=== PATIENT | female | born 1975 | race Caucasian/White ===

== ENCOUNTER 2023-04-05 08:00 | Outpatient (CLI) | payer BC ==
--- NOTE | 2023-04-06 12:54 | XRAY Report ---
PROCEDURE: Chest 2V INDICATIONS: CHEST PAIN TECHNIQUE: 2 views of the chest were acquired. COMPARISON: None. FINDINGS: Surgical changes and devices: None. Lungs and pleura: No pleural effusions or pneumothorax. Lungs are clear. Mediastinum: Mediastinal contours appear normal. Heart size is normal. Bones and chest wall: No suspicious bony lesions. Overlying soft tissues appear unremarkable. IMPRESSION: No acute cardiopulmonary process. Reviewed by: Anita Garrido MD on 04/06/2023 12:52 PM PST Approved by: Anita Garrido MD on 04/06/2023 12:52 PM PST Station ID: [id number]
== END 2023-04-05 23:59 | disposition home or self-care (01) ==
LOC: DI.S 08:00
PROVIDERS: ATTEND Physician Assistant
DX: R07.9 Chest pain, unspecified (principal); R01.1 Cardiac murmur, unspecified

== ENCOUNTER 2023-04-23 10:03 | Day surgery (SDC) | payer BC ==
[2023-04-23] MEDS: LACTATED RINGERS 1,000 ML IV ONE ×2 (10:30→12:35)
--- NOTE | 2023-04-23 11:18 | ANESTHESIA ---
Pre-Anesthesia VS, & Labs - Diagnosis screening - Procedure colonoscopy Vital Signs: Temp Pulse Resp BP Pulse Ox O2 Flow Rate 36.7 C 100 16 146/71 H 100 04/23/23 10:20 04/23/23 10:20 04/23/23 10:20 04/23/23 10:20 04/23/23 10:20 Height: 5 ft 8 in Weight (kg): 62 kg Body Mass Index: 20.7 BMI Classification: Normal - NPO >8 hours - Is Patient ?: No Comments:: test pending. will check results prior to anesthesia Home Medications and Allergies Home Medications: Ambulatory Orders No Known Home Medications 04/22/23 No Known Home Medications 04/22/23 Allergies/Adverse Reactions: Allergies Allergy/AdvReac Type Severity Reaction Status Date / Time No Known Drug Allergies Allergy Verified 04/22/23 13:13 Anes History & Medical History - Anesthetic History Anesthesia Complications: reports: No previous complications Family history of Anesthesia Complications: Denies Family history of Malignant Hyperthermia: Denies - Medical History Cardiovascular: reports: None, Other Pulmonary: reports: None Gastrointestinal: reports: None Urinary: reports: None Neuro: reports: None Musculoskeletal: reports: None Endocrine/Autoimmune: reports: None Skin: reports: Other Smoking Status: Never smoker Psychosocial: reports: Anxiety History of Cancer?: No Exam General: Alert, Oriented x3, Cooperative Dental: WNL Mouth Openin Fingerbreadth Neck Mobility: Normal Mallampati classification: I Thyromental Distance: 4-6 cm Respiratory: Lungs clear Cardiovascular: Regular rate Plan Anesthesia Type: General, Total IV Consent for Procedure(s) Verified and Reviewed: Yes Code Status: Attempt Resuscitation ASA classification: 2-Mild systemic disease Is this case an emergency?: No
[2023-04-23] MEDS ORDERED: PROPOFOL 500 MG/50 ML 500 MG/50 ML VIAL ONE (11:21)
[2023-04-23] MEDS ORDERED: PROPOFOL 200 MG/20 ML VIAL IVP ONE ×2 (11:25→11:58)
[2023-04-23 11:33] LABS: HCG UR QUAL NEGATIVE
[2023-04-23] MEDS ORDERED: MIDAZOLAM 2 MG/2 ML VIAL ONE (12:00)
[2023-04-23 12:52] VITALS: BP 108/76; O2SAT 100
--- NOTE | 2023-04-23 13:44 | ANESTHESIA POST OP EVALUATION ---
Anesthesia Post Eval - Post Anesthesia Eval Vitals: Last Vital Signs Temp 36.7 C 04/23/23 12:35 Pulse 78 04/23/23 12:45 Resp 18 04/23/23 12:45 BP 108/76 04/23/23 12:45 Pulse Ox 100 04/23/23 12:45 O2 Flow Rate CV Function Including HR & BP: Stable Pain Control: Satisfactory Nausea & Vomiting: Negative Mental Status: Baseline Respiratory Status: Airway Patent Hydration Status: Satisfactory Anesthesia Complications: None
== END 2023-04-23 10:04 | disposition home or self-care (01) ==
LOC: SDS 10:03
PROVIDERS: ATTEND Surgery
DX: Z12.11 Encounter for screening for malignant neoplasm of colon (principal); Z32.02 Encounter for pregnancy test, result negative
CPT/HCPCS: 45378; 81025; J7120